=== PATIENT | male | born 1985 | race Caucasian/White ===

== ENCOUNTER 2016-10-30 22:14 | Emergency (ER) | payer BC ==
[~2016-10-30] VITALS: Ht 185.4 cm; Wt 88.0 kg
[2016-10-30 22:15] VITALS: BP 131/84; PULSE 74; RESP 16; TEMP 97.8; O2SAT 96
[2016-10-30] MEDS ORDERED: SODIUM CHLOR 0.9% 1000 ML INJ 1,000 ML IV SCH (22:27)
[2016-10-30] MEDS ORDERED: SODIUM CHLORIDE 0.9% FLUSH 5 ML FLUSH IVF PRN (22:30)
[2016-10-30] MEDS ORDERED: DICYCLOMINE HCL 20 MG/2 ML VIAL IM ONE (22:30)
[2016-10-30 23:06] LABS: AUTOMATED NEUTROPHIL # 4.3 TH/MM3 (1.8-7.7); BASOPHIL % 0.3 % (0.0-2.0); EOSINOPHIL # 0.1 TH/MM3 (0-0.4); EOSINOPHIL % 1.8 % (0.0-4.0); HEMATOCRIT 43.6 % (39.0-51.0); HEMO FLAGS DIFF FINAL; LYMPH % 21.3 % (9.0-44.0); LYMPHOCYTE # 1.4 TH/MM3 (1.0-4.8); MEAN CELL VOLUME 90.4 FL (80.0-100.0); MEAN CORPUSCULAR HEMOGLOBIN 32.2 PG (27.0-34.0); MEAN CORPUSCULAR HGB CONC 35.6 % (32.0-36.0); MONO % 13.9 % (0.0-8.0); NEUT % 62.7 % (16.0-70.0); PLATELET COUNT 199 TH/MM3 (150-450); RED BLOOD COUNT 4.83 MIL/MM3 (4.50-5.90); RED CELL DISTRIBUTION WIDTH 12.8 % (11.6-17.2); WHITE BLOOD COUNT 6.8 TH/MM3 (4.0-11.0)
[2016-10-30 23:21] LABS: BLOOD, URINE SMALL (NEG); COMMENT (UR) CULT NOT INDICATED; CULTURE IF INDICATED CULT NOT INDICATED; GLUCOSE,URINE NEG (NEG); HYALINE CAST, URINE 1 /lpf (RARE); KETONE, URINE NEG (NEG); MUCUS URINE FEW /lpf (OCC); NITRITE,URINE NEG (NEG); URINE COLOR YELLOW (YELLW/STRAW)
[2016-10-30 23:30] LABS: BICARBONATE 24.4 MEQ/L (21.0-32.0); POTASSIUM 3.4 MEQ/L (3.5-5.1)
[2016-10-31] MEDS ORDERED: BENT20TA PO (00:21)
--- NOTE | 2016-10-31 00:22 | PD ---
HPI . Diarrhea and abdominal pain Chief Complaint: GI Complaint Time Seen by Provider: 22:26 Travel History International Travel<30 days: No Contact w/Intl Traveler<30days: No Traveled to known affect area: No History of Present Illness HPI Patient presents with about a 3 day history of diarrhea. He states this started about 3 days ago. He did have some vomiting the first day. He has had no vomiting since. His diarrhea has gotten progressively worse. He describes it as watery. No associated fever. No associated urinary tract symptoms. He has been treating it with Pepto-Bismol. [facility] Past Medical History Medical History: Denies Significant Hx Past Surgical History Surgical History: No Previous Surgery Social History Alcohol Use: Yes (ocasionaly) Tobacco Use: No Substance Use: No Allergies-Medications (Allergen,Severity, Reaction): Coded Allergies: No Known Allergies (Unverified , 10/30/16) Reported Meds & Prescriptions Reported Meds & Active Scripts Active No Active Prescriptions or Reported Medications Review of Systems Except as stated in HPI: all other systems reviewed are Neg General / Constitutional: No: Fever, Chills Respiratory: No: Cough, Shortness of Breath Gastrointestinal: Positive: Nausea, Vomiting, Diarrhea, Abdominal Pain Genitourinary: No: Urgency, Frequency, Dysuria Physical Exam Narrative GENERAL: This is a healthy-appearing young man in no acute distress. SKIN: Warm and dry. HEAD: Atraumatic. Normocephalic. EYES: Pupils equal and round. ENT: No nasal bleeding or discharge. Mucous membranes pink and moist. NECK: Trachea midline. CARDIOVASCULAR: Regular rate and rhythm. RESPIRATORY: No accessory muscle use. GASTROINTESTINAL: Abdomen soft, non-tender, nondistended. MUSCULOSKELETAL: No obvious deformities. No edema. NEUROLOGICAL: Awake and alert. No obvious cranial nerve deficits. Motor grossly within normal limits. Normal speech. PSYCHIATRIC: Appropriate mood and affect; insight and judgment normal. Data Data Last Documented VS Vital Signs Date Time Temp Pulse Resp B/P Pulse Ox O2 Delivery O2 Flow Rate FiO2 10/30/16 22:15 97.8 74 16 131/84 96 Orders Basic Metabolic Panel (Bmp) (10/30/16 22:27) Complete Blood Count With Diff (10/30/16 22:27) Urinalysis - C+S If Indicated (10/30/16 22:27) Iv Access Insert/Monitor (10/30/16 22:27) Sodium Chlor 0.9% 1000 Ml Inj (Ns 1000 M (10/30/16 22:27) Sodium Chloride 0.9% Flush (Ns Flush) (10/30/16 22:30) Dicyclomine Inj (Bentyl Inj) (10/30/16 22:30) Labs Laboratory Tests Test 10/30/16 22:50 White Blood Count 6.8 TH/MM3 Red Blood Count 4.83 MIL/MM3 Hemoglobin 15.6 GM/DL Hematocrit 43.6 % Mean Corpuscular Volume 90.4 FL Mean Corpuscular Hemoglobin 32.2 PG Mean Corpuscular Hemoglobin 35.6 % Concent Red Cell Distribution Width 12.8 % Platelet Count 199 TH/MM3 Mean Platelet Volume 8.7 FL Neutrophils (%) (Auto) 62.7 % Lymphocytes (%) (Auto) 21.3 % Monocytes (%) (Auto) 13.9 % Eosinophils (%) (Auto) 1.8 % Basophils (%) (Auto) 0.3 % Neutrophils # (Auto) 4.3 TH/MM3 Lymphocytes # (Auto) 1.4 TH/MM3 Monocytes # (Auto) 0.9 TH/MM3 Eosinophils # (Auto) 0.1 TH/MM3 Basophils # (Auto) 0.0 TH/MM3 CBC Comment DIFF FINAL Differential Comment Urine Color YELLOW Urine Turbidity CLEAR Urine pH 6.0 Urine Specific [place] 1.033 Urine Protein 30 mg/dL Urine Glucose (UA) NEG mg/dL Urine Ketones NEG mg/dL Urine Occult Blood SMALL Urine Nitrite NEG Urine Bilirubin NEG Urine Urobilinogen LESS THAN 2.0 MG/DL Urine Leukocyte Esterase NEG Urine RBC 1 /hpf Urine WBC 2 /hpf Urine Hyaline Casts 1 /lpf Urine Mucus FEW /lpf Microscopic Urinalysis Comment CULT NOT INDICATED Sodium Level 139 MEQ/L Potassium Level 3.4 MEQ/L Chloride Level 106 MEQ/L Carbon Dioxide Level 24.4 MEQ/L Anion Gap 9 MEQ/L Blood Urea Nitrogen 17 MG/DL Creatinine 1.12 MG/DL Estimat Glomerular Filtration 76 ML/MIN Rate Random Glucose 107 MG/DL Calcium Level 7.9 MG/DL [facility] [place] Medical Decision Making Medical Screen Exam Complete: Yes Emergency Medical Condition: Yes Differential Diagnosis Differential diagnosis of abdominal pain includes but is not limited to gastritis, pancreatitis, hepatitis, gastroenteritis, gallbladder disease, constipation, urinary retention, UTI, peptic ulcer disease, diverticulitis or appendicitis Narrative Course Patient presents for treatment of abdominal pain and diarrhea. He has a benign abdominal exam. CBC & BMP Diagram 10/30/16 22:50 UA is negative. Diagnosis Primary Impression: Diarrhea Qualified Code: R19.7 - Diarrhea, unspecified type Patient Instructions: Acute Diarrhea (ED), General Instructions Med/Other Pt SpecificInfo: Prescription(s) given Scripts Dicyclomine (Bentyl)20 Mg Tab20 Mg PO QID PRN (abdominal cramping) #10 TAB Ref 0 Prov:Lucy Adams MD 10/31/16 Disposition: 01 DISCHARGE HOME Condition: Stable Lucy Adams MD Oct 31, 2016 00:21
[2016-10-31 00:44] VITALS: BP 114/61; PULSE 65; RESP 16; O2SAT 100
== END 2016-10-31 00:46 | disposition home or self-care (01) ==
LOC: NEPC 22:14
DX: R19.7 Diarrhea, unspecified (principal)
CPT/HCPCS: 80048; 81001; 85025; 96360; 96372; 99284; J0500; J7030

== ENCOUNTER 2016-11-04 09:25 | Emergency (ER) | payer BC ==
[~2016-11-04] VITALS: Ht 185.4 cm; Wt 100.0 kg
[~2016-11-04 09:25] MED LIST: BENT20TA PO
[2016-11-04 09:27] VITALS: BP 158/90; PULSE 84; RESP 15; TEMP 98.1; O2SAT 99
--- NOTE | 2016-11-04 09:42 | PD ---
HPI Chief Complaint: Wound/Suture/Staple Re-Check Time Seen by Provider: 09:39 Travel History International Travel<30 days: No Contact w/Intl Traveler<30days: No Traveled to known affect area: No History of Present Illness HPI Patient comes in requesting suture removal from his right pinky finger that were placed 9 days ago in [place]. Patient denies any complaints or concerns with the sutures. Reports associated shortness up to date and has been taking care of his sutures as instructed. [facility] Past Medical History Medical History: Denies Significant Hx Social History Alcohol Use: Yes (ocasionaly) Tobacco Use: No Substance Use: No Allergies-Medications (Allergen,Severity, Reaction): Coded Allergies: No Known Allergies (Unverified , 11/04/16) Reported Meds & Prescriptions Reported Meds & Active Scripts Active Bentyl (Dicyclomine HCl) 20 Mg Tab 20 Mg PO QID PRN Review of Systems Except as stated in HPI: all other systems reviewed are Neg Physical Exam Narrative GENERAL: Well-developed, well nourished, in no acute distress, and non-ill appearing. SKIN: Warm and dry. [address] distal phalanx of right pinky finger palmar surface. There dry clean and intact. They're afebrile, nonerythematous , nontender, without drainage, or other signs of infection. HEAD: Atraumatic. Normocephalic. EYES: Pupils equal and round. EOMI. No scleral icterus. No injection or drainage. ENT: No nasal bleeding or discharge. Mucous membranes pink and moist. NECK: Trachea midline. Supple. No nuclear rigidity. RESPIRATORY: No accessory muscle use. No respiratory distress. MUSCULOSKELETAL: No obvious deformities. No clubbing. No cyanosis. No edema. Full range of motion. NEUROLOGICAL: Awake and alert. No obvious cranial nerve deficits. Motor grossly within normal limits. Normal speech. PSYCHIATRIC: Appropriate mood and affect; insight and judgment normal. Data Data Last Documented VS Vital Signs Date Time Temp Pulse Resp B/P Pulse Ox O2 Delivery O2 Flow Rate FiO2 11/04/16 09:27 98.1 84 15 158/90 99 MDM Medical Decision Making Medical Screen Exam Complete: Yes Emergency Medical Condition: Yes Differential Diagnosis Suture removal, wound check, wound infection, other Narrative Course Patient in no obvious distress upon re-evaluation. Any questions/concerns in reference to patient diagnosis/condition discussed and clarified prior to patient's discharge. Follow up with patient's primary physician or primary care clinic as needed. Instructed patient to return to ED immediately, if symptoms return/worsen. Pt showed understanding of above instructions. Further instructions and recommendations were detailed in discharge paperwork. Pt ambulated without difficulty out of ED at discharge. Procedures Procedure Narrative Verbal consent was obtained. 6 sutures were easily removed. There is no complications. Patient tolerated procedure well. Diagnosis Primary Impression: Visit for suture removal Patient Instructions: General Instructions, Stitches Removal (DC) Additional Instructions: Follow-up with your primary care physician as needed. Return to the emergency department for any emergent concerns. Disposition: 01 DISCHARGE HOME Condition: Stable Brendan Pastor Nov 04, 2016 09:42
== END 2016-11-04 10:05 | disposition home or self-care (01) ==
LOC: NEPB 09:25
DX: S61.216D Laceration without foreign body of right little finger without damage to nail, subsequent encounter (principal); Z48.02 Encounter for removal of sutures; X58.XXXD Exposure to other specified factors, subsequent encounter
CPT/HCPCS: 99281